=== PATIENT | female | born 1990 | race Caucasian/White ===

== ENCOUNTER 2016-12-30 21:20 | Emergency (ER) | payer OTHER ==
[~2016-12-30] VITALS: Ht 177.8 cm; Wt 62.8 kg
[~2016-12-30 21:20] MED LIST: ACET50TA PO; COLA100C5 PO; IBUP-1114 PO; PREN1TAB11 PO; VALT1TAB PO; VITAPRTA PO
[2016-12-31 00:20] VITALS: BP 107/65
--- NOTE | 2016-12-31 09:20 | REP ---
LEFT WRIST SERIES, COMPLETE: 12/30/2016 CLINICAL HISTORY: Trauma. FINDINGS: There are no prior studies. The distal radius and ulna show no fracture or avulsion. Carpal bones and their joint spaces are without subluxation, dislocation or fracture. Metacarpals and MCP joints visible are also normal. Minor swelling dorsal aspect of the wrist. IMPRESSION: 1. No visible fracture or other focal bone lesion about the wrist. Signed by Jessee Keller MD 12/31/2016 10:52 A
== END 2016-12-31 00:23 | disposition home or self-care (01) ==
LOC: M ED 22:25
DX: S63.522A Sprain of radiocarpal joint of left wrist, initial encounter (principal); X50.9XXA Other and unspecified overexertion or strenuous movements or postures, initial encounter; Y92.219 Unspecified school as the place of occurrence of the external cause; Y93.89 Activity, other specified; Y99.8 Other external cause status; Z79.899 Other long term (current) drug therapy; Z88.8 Allergy status to other drugs, medicaments and biological substances

== ENCOUNTER 2017-12-15 22:52 | Outpatient (CLI) | payer OTHER ==
[2017-12-16 00:19] LABS: BASO % 0.1 % (0.0-1.0); EOS % 0.5 % (0.0-3.0); HEMATOCRIT 32.3 % (36.0-47.0); HEMOGLOBIN 11.3 g/dl (12.0-15.5); IMMATURE GRANULOCYTE % 0.3 % (0-3.0); LYMPH # 1.1 10^3/uL (1.5-6.5); LYMPH % 12.3 % (24.0-44.0); MEAN CORPUSCULAR HEMOGLOBIN 31.9 pg (27.0-33.0); MEAN CORPUSCULAR VOLUME 91.2 fl (80.0-96.0); MONO # 0.3 10^3/uL (0.0-0.8); MONO % 3.9 % (0.0-5.0); NEUTROPHILS # 7.2 10^3/uL (1.8-7.7); NEUTROPHILS % 82.9 % (36.0-66.0); PLATELET COUNT, AUTOMATED 354 10^3/uL (150-450); RED BLOOD COUNT 3.54 10^6/uL (4.00-5.40); RED CELL DISTRIBUTION WIDTH 12.8 % (11.5-14.5); WHITE BLOOD COUNT 8.7 10^3/uL (4.0-10.0)
== END 2017-12-16 01:30 | disposition home or self-care (01) ==
LOC: M LDO 22:52
DX: O36.8130 Decreased fetal movements, third trimester, not applicable or unspecified (principal); Z3A.36 36 weeks gestation of pregnancy; W19.XXXA Unspecified fall, initial encounter; O99.353 Diseases of the nervous system complicating pregnancy, third trimester; G43.909 Migraine, unspecified, not intractable, without status migrainosus; O98.513 Other viral diseases complicating pregnancy, third trimester; O36.5930 Maternal care for other known or suspected poor fetal growth, third trimester, not applicable or unspecified; O99.513 Diseases of the respiratory system complicating pregnancy, third trimester; J45.909 Unspecified asthma, uncomplicated
CPT/HCPCS: 59025

== ENCOUNTER 2018-01-04 05:32 | Inpatient (IN) | payer OTHER ==
[2018-01-04] MEDS: AZITHROMYCIN INJ 500 MG, VIAL MATE ADAPTER 1 EACH in D5W 250 ML IV (06:16)
[2018-01-04] MEDS: LR 1,000 ML IV (06:16)
[2018-01-04 06:28] LABS: HEMATOCRIT 38.1 % (36.0-47.0); HEMOGLOBIN 13.2 g/dl (12.0-15.5); MEAN CORPUSCULAR HEMOGLOBIN 32.3 pg (27.0-33.0); MEAN CORPUSCULAR HGB CONC 34.6 g/dl (32.0-36.5); MEAN CORPUSCULAR VOLUME 93.2 fl (80.0-96.0); PLATELET COUNT, AUTOMATED 266 10^3/uL (150-450); RED BLOOD COUNT 4.09 10^6/uL (4.00-5.40); WHITE BLOOD COUNT 10.7 10^3/uL (4.0-10.0)
[2018-01-04] MEDS ORDERED: LR 1,000 ML IV (07:00)
[2018-01-04] MEDS ORDERED: ONDANSETRON 4MG/2ML VIAL (J2405) As Ordered (07:11)
[2018-01-04] MEDS ORDERED: OXYTOCIN INJ 10 UNITS/ML VIAL (J2590) As Ordered ×3 (07:11→08:46)
[2018-01-04] MEDS ORDERED: KETOROLAC 60 MG/2 ML VIAL (J1885) As Ordered (07:11)
[2018-01-04] MEDS ORDERED: fentaNYL 100 MCG/2 ML INJECTION (J3010) As Ordered (07:11)
[2018-01-04] MEDS ORDERED: dexameTHASONE 4 MG/ML 1ML VIAL (J1100) As Ordered (07:11)
[2018-01-04] MEDS ORDERED: MORPHINE PRES-FREE INJ 10 MG/10 ML VIAL (J2274) As Ordered (07:12)
[2018-01-04] MEDS: BICITRA 30ML SOLN UDC PO (07:22)
[2018-01-04] MEDS ORDERED: BUPIVACAINE HCL 0.5% 30 ML VIAL As Ordered (07:43)
[2018-01-04] MEDS ORDERED: PHENYLephrine HCL 500 MCG/5 ML (100MCG/ML) SYRINGE (J2370) As Ordered ×2 (08:36)
[2018-01-04] MEDS ORDERED: ePHEDrine SULFATE 25 MG/5 ML(5MG/ML) SYRINGE As Ordered (08:36)
[2018-01-04 08:43] LABS: CORD GAS ABE V -3.2; CORD GAS HCO3 V 24.9 MEQ/L; CORD GAS O2 SAT V 39.9 %; CORD GAS PCO2 V 56.4 mmHg; CORD GAS PH V 7.262 UNITS; CORD GAS PO2 V 17.9 mmHg; CORD GAS SBC V 20.3 MEQ/L; CORD GAS TCO2 V 26.6 MEQ/L
[2018-01-04 08:45] LABS: CORD GAS ABE A -4.9; CORD GAS HCO3 A 24.6 MEQ/L; CORD GAS O2 SAT A 29.5 %; CORD GAS PCO2 A 64.9 mmHg; CORD GAS PH A 7.196 UNITS; CORD GAS PO2 A 15.8 mmHg; CORD GAS SBC A 18.8 MEQ/L; CORD GAS TCO2 A 26.6 MEQ/L
[2018-01-04] MEDS: ACETAMINOPHEN 650 MG SUPP PR (09:00)
[2018-01-04] MEDS: BUPIVACAINE HCL 0.5% 10 ML VIAL XX (09:04)
[2018-01-04] MEDS ORDERED: OXYTOCIN DRIP 30 UNITS in APPROPRIATE DILUENT 1 EA IV (09:10)
[2018-01-04] MEDS ORDERED: DOCUSATE SODIUM 100 MG CAP PO (09:15)
[2018-01-04] MEDS ORDERED: METHYLERGONOVINE MALEATE 0.2 MG TAB PO (09:15)
[2018-01-04] MEDS ORDERED: MOM 30ML SUSPENSION UDC PO (09:15)
[2018-01-04] MEDS ORDERED: ANUSOL HC CREAM 30GM TOP (09:15)
[2018-01-04] MEDS ORDERED: RHOGAM 300 MCG (1500 IU) INJ (J2790) IM (09:15)
[2018-01-04] MEDS ORDERED: OXYTOCIN INJ 10 UNITS/ML VIAL (J2590) IV (09:15)
[2018-01-04] MEDS ORDERED: MEASLES,MUMPS,RUBELLA VACCINE INJ (MMR-II) (90707) SC (09:15)
[2018-01-04] MEDS ORDERED: ONDANSETRON 4MG/2ML VIAL (J2405) IV (10:00)
[2018-01-04] MEDS ORDERED: PERCOCET 5MG/325MG TAB PO (10:00)
[2018-01-04] MEDS ORDERED: fentaNYL 100 MCG/2 ML INJECTION (J3010) IV (10:00)
[2018-01-04] MEDS: PERCOCET 5MG/325MG TAB PO (11:32)
[2018-01-04] MEDS: KETOROLAC 30 MG/ML VIAL (J1885) IV ×2 (12:57→19:43)
[2018-01-05] MEDS: KETOROLAC 30 MG/ML VIAL (J1885) IV (01:13)
[2018-01-05 06:24] LABS: HEMATOCRIT 28.7 % (36.0-47.0); MEAN CORPUSCULAR HGB CONC 34.1 g/dl (32.0-36.5); MEAN CORPUSCULAR VOLUME 93.8 fl (80.0-96.0); PLATELET COUNT, AUTOMATED 200 10^3/uL (150-450); RED BLOOD COUNT 3.06 10^6/uL (4.00-5.40); RED CELL DISTRIBUTION WIDTH 13.2 % (11.5-14.5)
[2018-01-05 06:44] LABS: HEMOGLOBIN 9.8 g/dl (12.0-15.5)
[2018-01-05] MEDS: PERCOCET 5MG/325MG TAB PO ×4 (07:43→21:34)
[2018-01-05] MEDS: PRENATAL VITAMINS CHEWABLE TABLET PO (08:51)
[2018-01-05] MEDS: IBUPROFEN 800 MG TAB PO ×2 (08:51→17:00)
[2018-01-06] MEDS: IBUPROFEN 800 MG TAB PO ×2 (00:43→08:55)
[2018-01-06] MEDS: PERCOCET 5MG/325MG TAB PO ×3 (02:14→11:53)
[2018-01-06] MEDS: PRENATAL VITAMINS CHEWABLE TABLET PO (08:55)
== END 2018-01-06 14:00 | disposition home or self-care (01) | DRG 765 ==
LOC: M LDI 05:32 → M OBS 10:54
PROVIDERS: Obstetrics & Gynecology
PROC: 10D00Z1 Extraction of Products of Conception, Low, Open Approach (ICD-10-PCS; principal; 2018-01-04 07:30)
DX: O98.52 Other viral diseases complicating childbirth (principal); O99.354 Diseases of the nervous system complicating childbirth; O99.43 Diseases of the circulatory system complicating the puerperium; Z3A.39 39 weeks gestation of pregnancy; A60.03 Herpesviral cervicitis; Z37.0 Single live birth; Z88.8 Allergy status to other drugs, medicaments and biological substances; Z79.899 Other long term (current) drug therapy; G43.909 Migraine, unspecified, not intractable, without status migrainosus; J45.909 Unspecified asthma, uncomplicated; Z90.49 Acquired absence of other specified parts of digestive tract; I44.0 Atrioventricular block, first degree; O99.52 Diseases of the respiratory system complicating childbirth